=== PATIENT | female | born 1995 | race Caucasian/White ===

== ENCOUNTER 2024-05-22 10:20 | Outpatient (CLI) | payer OTHER, SELFPAY | END 2024-05-22 10:21 | disposition home or self-care (01) | LOC: ANHIMG 10:25 | PROVIDERS: PCP Family Medicine; Visit Provider Nurse Practitioner Family | DX: N63.20 Unspecified lump in the left breast, unspecified quadrant (principal) | CPT/HCPCS: 76641; 77062; 77066; G0279 ==

== ENCOUNTER 2024-11-24 12:55 | Outpatient (CLI) | payer OTHER, SELFPAY ==
--- OUTSIDE RECORDS SUMMARY | 2024-11-24 13:07 | XMS_ITS | Clinical Summary ---
Author Organization [facility] [employer] Address [address] [place] [address] [place] [address] Care Team Providers Care Assistant Customer Service Manager Name Role Phone Eben Kaur MD Primary Care Provider [phone] Source Comments [facility] [employer] [facility]),non-owned Affiliates and Associated Physician Practices is amultiple site organization consisting of ambulatory clinics and hospital sitesin [place], [place], [place] and [place]. This disclosure is being madepursuant to the Care Everywhere program and may not contain all information available regarding this patient. Last updated 17.[facility] [employer] Allergies Active Allergy Reactions Criticality Noted Date Comments Amoxicillin Itching 02/18/2018 Sulfamethoxazole W-Trimethoprim Other Low 11/23 States is immune Medications * Be aware that medications may not be up to date on this document. Alwaysverify current medications with the patient. pentosan polysulfate sodium (ELMIRON) 100 MG capsule Take 1 capsule by mouth 3 times daily before meals 90 capsule 5 02/18/2018 Active Active Problems No known active problems Family History Medical History Relation Name Comments Depression Mother Diabetes - Type 2 Paternal Grandmother Relation Name Status Comments Mother Paternal Grandmother Social History Tobacco Use Types Packs/Day Years Used Date Smoking Tobacco: Former Smokeless Tobacco: Never Alcohol Use Standard Drinks/Week Comments Yes 0 (1 standard drink = 0.6 oz pur e alcohol) Comments No Sex and Gender Information Value Date Recorded Sex Assigned at Not on file Legal Sex Female 9:07 AM CDT Gender Identity Not on file Sexual Orientation Not on file Last Filed Vital Signs Vital Sign Reading Time Taken Comments Blood Pressure 120/80 03/31/2018 5:30 PM MS SQL DEVELOPER Pulse - - Temperature - - Respiratory Rate - - Oxygen Saturation - - Inhaled Oxygen Concentration - - Weight 63.5 kg (140 lb) 03/31/2018 5:30 PM MS SQL DEVELOPER Height 154.9 cm (5' 1) 03/31/2018 5:30 PM MS SQL DEVELOPER Body Mass Index 26.45 03/31/2018 5:30 PM MS SQL DEVELOPER Plan of Treatment Health Maintenance Due Date Last Done Comments HIV SCREENING 2009 HEPATITIS C SCREENING 03/11/2012 DTAP/TDAP/TD VACCINES (1 - Tdap) 2013 HEPATITIS B VACCINE (1 of 3 - 19+ 3-dose series) 2013 HPV VACCINE (1 - 3-dose SCDM series) 2021 COVID-19 VACCINE (1 - 2023-2 5 season) 2023 DEPRESSION SCREENING 03/25/2024 INFLUENZA VACCINE (#1) 2024 ZOSTER VACCINE (1 of 2) 2044 HIB VACCINE Aged Out No longer eligi ble based on patient's age to complete this topic MENINGOCOCCAL (Group B) VACC INE SHARED DECISION-MAKING Aged Out No longer eligibl e based on patient's age to complete this topic MENINGOCOCCAL GROUPS A/C/Y/W VACCINE Aged Out No longer eligible b ased on patient's age to complete this topic PNEUMOCOCCAL VACCINE Aged Out No long er eligible based on patient's age to complete this topic Insurance [facility] Care Teams Assistant Customer Service Manager Relationship Specialty Start Date End [place] [address] PCP - General 02/18/18
--- OUTSIDE RECORDS SUMMARY | 2024-11-24 13:08 | XMS_ITS | Clinical Summary ---
Author Organization [facility] Address [address] [place] [address] Care Team Providers Care Emergency Management Director Name Role Phone Eben Kaur MD Primary Care Provider [phone] Allergies Active Allergy Reactions Criticality Noted Date Comments Amoxicillin Rash,Itching Medium 02/18/2018 Sulfamethoxazole-Trimet hoprim Other (See comments),Unknown Low 12/02/2017 States is immune States is immune Medications EPINEPHrine 0.3 mg/0.3 mL auto-injection syringeIndicati ons:Anaphylaxis Inject 0.3 mL (0.3 mg total) into the muscle as instructed as needed for anaphylaxis. 2 Syringe 1 8 Active Additional Information Patient not taking.Reported on 10/07/2022 predniSONE (DELTASONE) 10 mg tabletIndicatio ns:Allergic dermatitis Take 4 tablets days 1-3, take 3 tablets days 4-6, take 2 tablets days 7-9, take 1 tablet days 10-14 32 tablet 3 Active triamcinolone (KENALOG) 0.1 % creamIndication s:Allergic dermatitis Apply topically 3 (three) times a day for 10 days 30 g 3 Active fluconazole (Diflucan) 150 mg tablet 1 tablet, one time only, may repeat once after 4 days 2 tablet 4 Active fluconazole (Diflucan) 150 mg tabletIndicatio ns:Vaginal discharge 1 tablet, one time only, may repeat once after 4 days 2 tablet 4 Active Active Problems Problem Noted Date Diagnosed Date Aspiration pneumonitis 03/02/2018 Assessment & Plan (03/02/2018 9:08 AM DIRECTOR MEDICARE SALES): Afebrile, white count elevated, likely reactive --Monitor off antibiotics --CBC, BMP in AM Acute respiratory failure with hypoxia 8 Assessment & Plan (03/02/2018 9:08 AM DIRECTOR MEDICARE SALES): Respiratory failure 2/2 possible allergic reaction to a drug or additive --Wean O2 as tolerated --Albuterol nebs q12 & PRN --Monitor vitals/temps --Follow up final drug screen --Epi PRN for recurrence of stridor Assessment & Plan (03/01/2018 12:20 PM DIRECTOR MEDICARE SALES): Respiratory failure 2/2 possible allergic reaction to a drug or additive, or narcotic. --Wean O2 as tolerated --Albuterol nebs PRN --Monitor vitals/temps --Follow up final drug screen --Epi PRN for recurrence of stridor Drug abuse 03/01/2018 Assessment & Plan (03/02/2018 9:10 AM DIRECTOR MEDICARE SALES): Patient reports infrequent drug use. Does not plan to use drugs again. --Counseled on cessation --Follow up final drug screen Assessment & Plan (03/01/2018 12:18 PM DIRECTOR MEDICARE SALES): Patient reports infrequent drug use --Underwater Hunter Trapper on cessation --Follow up final drug screen Candidal vulvovaginitis 05/28/2017 Cystitis 05/06/2017 Pyelonephritis 05/06/2017 Attention deficit disorder (ADD) without hyperac tivity 08/08/2013 Overview (06/28/2016): ADD (attention deficit disorder) Immunizations Immunization Administration Dates Next Due DTaP 06/17/1995,1994,1994 HPV, Quadrivalent 06/10/2008,01/05/2008,11/27/19 08 Hep B Vaccine 1994,1994,1994 IPV 10/26/1999, 5,1994,05/17 Influenza, Unspecified 11/15/2017(Deferr ed: Patient Refused),10/10/2017(Deferred: Patient Refused),03/26/2016(Deferred: Patient Refused) MMR 10/26/1999,04/08/1995 Meningococcal Polysaccharide (Menomune) 11/27/2007 Tdap 12/03/2005 Varicella 12/05/2010,01/30/2001 Medical History Medical History Date Comments UTI (urinary tract infection) Yeast infection involving the vagina and surroun ding area Family History Medical History Relation Name Comments No Known Problems Father Anthony Coronary artery disease Father's Brother Coronary artery disease; Diabetes type II Maternal Grandfather Susan rodriguez -Type 2; No Known Problems Mother Hoda Diabetes Mother's Sister 1 Diabetes m ellitus; Learning disabilities Mother's Sister 2 L earning disability; No Known Problems Sister 1 Johana No Known Problems Sister 2 Caseu Relation Name Status Comments Father Anthony Alive Father's Brother Maternal Grandfather Mother Hoda Alive Mother's Sister 1 Mother's Sister 2 Sister 1 Johana Alive Sister 2 Caseu Alive Social History Tobacco Use Types Packs/Day Years Used Date Smoking Tobacco: Former Cigarettes Q uit: 05/01/2016 Smokeless Tobacco: Former Alcohol Use Standard Drinks/Week Comments Yes 0 (1 standard drink = 0.6 oz pur e alcohol) 1 x weekly PHQ-2 Answer Date Recorded PHQ-2 Score 0 11/14/2018 Comments No Sex and Gender Information Value Date Recorded Sex Assigned at Not on file Legal Sex Female 7:12 PM DIRECTOR MEDICARE SALES Gender Identity Female 07/04/2020 10:41 AM CDT Sexual Orientation Straight 07/04/2020 10 :41 AM CDT Obstetrics History Last Filed Vital Signs Vital Sign Reading Time Taken Comments Blood Pressure 124/64 10/07/2022 10:00 AM CDT Pulse 60 10/07/2022 10:00 AM CDT Temperature 36.6 C (97.9 F) 10/07/2022 10:00 AM CDT Respiratory Rate 16 10/07/2022 10:00 AM CDT Oxygen Saturation 98% 11/27/2020 8:50 AM CDT Inhaled Oxygen Concentration - - Weight 65.8 kg (145 lb) 10/07/2022 10:00 AM CDT Height 154.9 cm (5' 1) 10/07/2022 10:00 AM CDT Body Mass Index 27.4 10/07/2022 10:00 AM CDT Plan of Treatment Health Maintenance Due Date Last Done Comments Hepatitis C Screening 1994 DTaP/Tdap/Td Vaccine (5 - Td or Tdap) 12/04/2015 12/03/2005, 06/17/1995, 1994, Additional history exists Cervical Cancer Screening 08/01/2018 08/01/2017, 10/2016 Regular Well Visit/Exam 18-64 08/01/2018 08/01/2017 Depression Screening 03/10/2019 03/10/2018, 11/15/2017, 10/10/2017, Additional history exists Hepatitis B Screening Completed 1994 , 1994, 1994 HPV Vaccines Completed 06/10/2008, 12/23, 11/27/2007 Varicella Vaccines Completed 12/05/2010, 01/30/2001 Influenza Vaccine Discontinued Pneumococcal vaccine <65 Aged Out No longer eligible based on patient's age to complete this topic Procedures Procedure Name Priority Date/Time Associated Diagnosis Comments THINPREP THERMOSTAT MACHINE TENDER PAP (IMAGE GUIDED) LIQUID-BASED PREP Routine 08/01/2017 8:30 AM CDT from Last 3 Months or Most Recently Relevant to Health Maintenance Results * ThinPrep Gynecologic Pap Test (Image-guided), Liquid-based Preparation (08/01/2017 8:30 AM CDT) Report status CANCELED [facility] Comment:Result canceled by t he ancillary CLINICAL INFORMATION: [facility] Comment:Information not prov ided LMP [facility] Comment:07/14/17-07/19/17 Previous Pap [facility] Comment:SPRING 2016 Prev. Bx [facility] Comment:NEVER. NO ABN PAPS. SOURCE: [facility] Comment:Information not prov ided Pap, specimen adequacy [facility] Comment: Satisfactory for evaluation. Endocervical/transformation zone component present. Pap, general categorization [facility]CELED [facility] Comment:Result canceled by t he ancillary HPV interp [facility] Comment:Negative for intraep ithelial lesion or malignancy. Infection: CANCELED [facility] Comment:Result canceled by t he ancillary COMMENTS [facility] Comment: This Pap test has been evaluated with computer assisted technology. Instructor Extension Work [facility] - Comment: BKA, CT(ASCP) CT screening location: [place] [address] [address] [place] [address] Review nurse's companion CANCELED [facility] - Comment:Result canceled by t he ancillary Pathologist CANCELED [facility] - Comment:Result canceled by t he ancillary Comment [facility] Comment: EXPLANATORY NOTE: The Pap is a screening test for cervical cancer. It is not a diagnostic test and is subject to false negative and false positive results. It is most reliable when a satisfactory sample, regularly obtained, is submitted with relevant clinical findings and history, and when the Pap result is evaluated along with historic and current clinical information. 08/01/2017 8:30 AM CDT 08/02/2017 4:27 AM CDT Narrative Resulting Agency Comment Performing Organization Information: Site ID: Name: [facility] Address: [facility] Administration [place] [address] Director: Meri Villar Ibis Smith NP LAB PATHOLOGY ORDERABLES Final Result [facility] [place] from Last 3 Months or Most Recently Relevant to Health Maintenance Insurance MEDICAID [employer] [facility] [place] Advance Directives For more information, please contact: [phone] * Full Code (Latest Code Status on File) Date Activated Date Inactivated Comments 03/01/2018 11:45 AM 03/02/2018 6:12 PM Care Teams Emergency Management Director Relationship Specialty Start Date End Date Eben Kaur MD [address] [place] [address] PCP - General Family Medicine 05/28/17
--- NOTE | 2024-11-24 14:30 | NEURO_ITS ---
Impression: # Complains of numbness of hands. ? # Right ulnar neuropathy across the elbow. ? # No Carpal Tunnel Syndrome. ? # Normal needle/EMG. Nerve Conduction Studies ?Stim Site NR Peak (ms) P-T Amp (?V) Site1 Site2 Delta-P (ms) Dist (cm) Perez (m/s) Left Median Anti Sensory (2-3nd Digit) Wrist ? 2.7 66.5 Wrist 2-3nd Digit 2.7 14.0 52 Wrist ? 2.7 50.3 Wrist 2-3nd Digit 2.7 14.0 52 Right Median Anti Sensory (2-3nd Digit) Wrist ? 2.5 50.6 Wrist 2-3nd Digit 2.5 14.0 56 Wrist ? 2.5 51.6 Wrist 2-3nd Digit 2.5 14.0 56 Left Radial Anti Sensory (Base 1st Digit) Wrist ? 2.0 28.0 Wrist Base 1st Digit 2.0 0.0 Right Radial Anti Sensory (Base 1st Digit) Wrist ? 1.9 24.4 Wrist Base 1st Digit 1.9 0.0 Left Ulnar Anti Sensory (5th Digit) Wrist ? 2.3 70.6 Wrist 5th Digit 2.3 14.0 61 Right Ulnar Anti Sensory (5th Digit) Wrist ? 2.2 69.4 Wrist 5th Digit 2.2 14.0 64 ?Stim Site NR Onset (ms) O-P Amp (mV) Site1 Site2 Delta-0 (ms) Dist (cm) Perez (m/s) Left Median Motor (Abd Poll Brev) Wrist ? 3.0 5.1 Elbow Wrist 4.0 24.0 60 Elbow ? 7.0 4.6 Right Median Motor (Abd Poll Brev) Wrist ? 2.6 6.5 Elbow Wrist 4.0 26.0 65 Elbow ? 6.6 5.5 Left Ulnar Motor (Abd Dig Minimi) Wrist ? 2.5 10.2 A Elbow Wrist 4.3 27.0 63 A Elbow ? 6.8 10.6 B Elbow Wrist 3.0 19.0 63 B Elbow ? 5.5 7.4 Right Ulnar Motor (Abd Dig Minimi) Wrist ? 2.0 6.8 A Elbow Wrist 5.0 26.0 52 A Elbow ? 7.0 5.9 B Elbow Wrist 3.2 18.0 56 B Elbow ? 5.2 4.8 F Wave Studies ?NR F-Lat (ms) L-R F-Lat (ms) Left Median (Mrkrs) (Abd Poll Brev) ? 23.20 1.28 Right Median (Mrkrs) (Abd Poll Brev) ? 24.48 1.28 Left Ulnar (Mrkrs) (Abd Dig Min) ? 22.66 0.62 Right Ulnar (Mrkrs) (Abd Dig Min) ? 23.28 0.62 Electromyography ?Side Muscle Nerve Root Ins Act Fibs Amp Dur Recrt Comment Right 1stDorInt Ulnar C8-T1 Nml Nml Nml Nml Nml Right Ext Indicis Radial (Post Int) C7-8 Nml Nml Nml Nml Nml Right Ext Digitorum Radial (Post Int) C7-8 Nml Nml Nml Nml Nml Right BrachioRad Radial C5-6 Nml Nml Nml Nml Nml Right PronatorTeres Median C6-7 Nml Nml Nml Nml Nml Right Abd Poll Brev Median C8-T1 Nml Nml Nml Nml Nml Right ABD Dig Min Ulnar C8-T1 Nml Nml Nml Nml Nml Right FlexPolLong Median (Ant Int) C7-8 Nml Nml Nml Nml Nml Right Abd Poll Long Radial (Post Int) C7-8 Nml Nml Nml Nml Nml Left 1stDorInt Ulnar C8-T1 Nml Nml Nml Nml Nml Left Ext Indicis Radial (Post Int) C7-8 Nml Nml Nml Nml Nml Left Ext Digitorum Radial (Post Int) C7-8 Nml Nml Nml Nml Nml Left BrachioRad Radial C5-6 Nml Nml Nml Nml Nml Left PronatorTeres Median C6-7 Nml Nml Nml Nml Nml Left Abd Poll Brev Median C8-T1 Nml Nml Nml Nml Nml Left ABD Dig Min Ulnar C8-T1 Nml Nml Nml Nml Nml Left FlexPolLong Median (Ant Int) C7-8 Nml Nml Nml Nml Nml Left Abd Poll Long Radial (Post Int) C7-8 Nml Nml Nml Nml Nml
== END 2024-11-24 12:56 | disposition home or self-care (01) ==
PROVIDERS: PCP Family Medicine; Visit Provider Nurse Practitioner Family
DX: G56.21 Lesion of ulnar nerve, right upper limb (principal)
CPT/HCPCS: 95886; 95911